=== PATIENT | female | born 1965 | race Two or more races ===

== ENCOUNTER 2021-08-27 20:50 | Emergency (ER) | payer OTHER ==
[~2021-08-27] VITALS: Ht 160 cm; Wt 62.6 kg
[2021-08-27] MEDS ORDERED: SYNTHROID150 MCG (21:30)
[2021-08-27] MEDS ORDERED: DUI500 PO (23:17)
== END 2021-08-27 23:43 | disposition home or self-care (01) ==
LOC: ER 20:50
DX: S01.341A Puncture wound with foreign body of right ear, initial encounter (principal); L08.9 Local infection of the skin and subcutaneous tissue, unspecified; Z88.0 Allergy status to penicillin; W45.8XXA Other foreign body or object entering through skin, initial encounter